=== PATIENT | female | born 1935 | race Caucasian/White ===

== ENCOUNTER → 2018-11-09 | Outpatient (CLI) | payer MEDICARE ==
[~2018-11-09] MED LIST: ALEN5TAB2 PO; ASPI-496 PO; CALC1TAB PO; CHOL2000 PO; MULT-717 PO; SIMV20TA3; SIMV20TA3 PO; VITA200C7 PO
== END | disposition home or self-care (01) ==
LOC: CVU 08:06
PROVIDERS: ATTEND Nurse Practitioner Family
DX: I83.892 Varicose veins of left lower extremity with other complications (principal); R60.9 Edema, unspecified; M79.604 Pain in right leg
CPT/HCPCS: 93970

== ENCOUNTER → 2018-11-15 | Outpatient (CLI) | payer MEDICARE | END | disposition home or self-care (01) | LOC: CFH 08:56 | PROVIDERS: ATTEND Nurse Practitioner Family | DX: M85.88 Other specified disorders of bone density and structure, other site (principal); Z78.0 Asymptomatic menopausal state | CPT/HCPCS: 77080 ==

== ENCOUNTER 2019-08-28 15:05 | Emergency (ER) | payer MEDICARE ==
[~2019-08-28] VITALS: Ht 154.9 cm; Wt 85.0 kg
[~2019-08-28 15:05] MED LIST changes: -ALEN5TAB2 PO; +ALEN5TAB5 PO
--- NOTE | 2019-08-28 15:27 | NUR ---
PT MOVED TO ROOM
--- NOTE | 2019-08-28 15:48 | NUR ---
BREAK NOTE: PT. IS A & O X 4 WITH A GCS OF 15. PT. REPORTS BACK PAIN SINCE TUESDAY, 2 DAYS. PT. DENIES TRAUMA OR FALLS. PT. IS PINK,WARM AND DRY. LUNGS ARE CTA. MM ARE PINK AND MOIST WITH PULSES +2 THROUGHOUT. PT. AMBULATES WITH A CANE. PT. DENIES BOWEL OR BLADDER ISSURES. PT. HAS THE PULSE OX AND BP CUFF IN PLACE. SIDERAILS REMAIN UP X 2 WITH THE CALL LIGHT IN PLACE. PT. WAS GIVEN A BLANKET FOR WARMTH.
[2019-08-28] MEDS ORDERED: SODIUM CHLORIDE FLUSH 10ML SYR IVF ONE (16:00)
[2019-08-28 16:39] LABS: BASOPHILS # (AUTO) 0.04 x10^3/uL (0-0.1); BASOPHILS % (AUTO) 1 % (0-1); EOSINOPHILS # (AUTO) 0.12 x10^3/uL (0-0.4); EOSINOPHILS % (AUTO) 2 % (1-7); LYMPHOCYTES # (AUTO) 1.57 x10^3/uL (1-3.4); LYMPHOCYTES % (AUTO) 24 % (22-44); MD NO; MEAN CORPUSCULAR HEMOGLOBIN 33.4 pg (27.0-34.8); MEAN CORPUSCULAR HGB CONC 33.1 g/dL (32.4-35.8); MEAN CORPUSCULAR VOLUME 100.8 fL (80-100); MEAN PLATELET VOLUME 7.9 fL (7.4-10.4); MONOCYTES # (AUTO) 0.39 x10^3/uL (0.2-0.8); MONOCYTES % (AUTO) 6 % (2-9); NEUTROPHILS # (AUTO) 4.34 x10^3/uL (1.8-6.8); NEUTROPHILS % (AUTO) 67 % (42-75); PLATELET COUNT 292 x10^3/uL (130-400); RED BLOOD COUNT 4.31 x10^6/uL (3.82-5.3); RED CELL DISTRIBUTION WIDTH 13.2 % (9.6-15.2)
--- NOTE | 2019-08-28 16:47 | NUR ---
REPORT FROM JOE HILLS TO ASSUME CARE AT THIS TIME.
[2019-08-28 16:49] LABS: ALANINE AMINOTRANSFERASE 20 U/L (12-78); ALBUMIN 3.6 g/dL (3.4-5.0); ANION GAP 6 mmol/L (5-15); CALCIUM 9.1 mg/dL (8.5-10.1); CHLORIDE 110 mmol/L (98-107); CREATININE 0.81 mg/dL (0.55-1.02)
[2019-08-28 16:52] LABS: ALKALINE PHOSPHATASE 47 U/L (45-117); TOTAL PROTEIN 6.9 g/dL (6.4-8.2)
--- NOTE | 2019-08-28 17:00 | NUR ---
pt resting in room with family at bs. vss. no needs expressed. pt unable to provide clean ua sample. will plan to straight cath. awaiting ct.
--- NOTE | 2019-08-28 17:13 | NUR ---
UA COLLECTED VIA STRAIGHT CATH AND SENT TO LAB. VSS. PT TOLERATED WELL. NO NEEDS EXPRESSED. CALL LIGHT WITHIN REACH.
[2019-08-28 17:38] LABS: MICROSCOPIC AUTO
[2019-08-28 17:48] LABS: CULTURE INDICATED? NO
[2019-08-28] MEDS ORDERED: OMNIPAQUE 350 MG/ML, 100ML BOTTLE ONE (17:53)
--- NOTE | 2019-08-28 18:03 | NUR ---
ALL RESULTS BACK AT THIS TIME. CHART UP FOR RECHECK.
[2019-08-28 18:37] VITALS: BP 173/72
== END 2019-08-28 19:09 | disposition home or self-care (01) ==
LOC: ED 18:45
DX: M54.42 Lumbago with sciatica, left side (principal); E78.5 Hyperlipidemia, unspecified
CPT/HCPCS: 36415; 74177; 80053; 81001; 85025; 99284; Q9967

== ENCOUNTER 2020-06-08 19:24 | Emergency (ER) | payer MEDICARE ==
[~2020-06-08] VITALS: Ht 154.9 cm; Wt 91.9 kg
[~2020-06-08 19:24] MED LIST changes: +SIMV20TA19; +SIMV20TA19 PO; -SIMV20TA3; -SIMV20TA3 PO
--- NOTE | 2020-06-08 20:00 | NUR ---
PT GETTING INTO ELEVATOR AT [facility], PT STATED THAT FLOOR WAS NOT LEVEL AND SHE ENDED UP FALLING DOWN. DENIES LOC, DENIES HITTING HEAD AND STATES LEFT HIP PAIN. PT DENIES ANY MEDICAL HISTORY OR MEDS. PT RESTING COMFORTABLY ION BED, FAMILY AT BEDSIDE, STATES NO NEEDS AT THIS TIME. 09/07 PAIN.
--- NOTE | 2020-06-08 20:23 | NUR ---
ATTEMPTED TO GET PT UP TO AMBULATE, PT HAVING TOO MUCH PAIN. ERP STATES TO GIVE ORAL PAIN MEDS AND A XRAY OF HER BACK AND ATTEMPT TO GET UP WHEN PAIN MEDS START WORKING.
[2020-06-08] MEDS ORDERED: HYDROcodone/APAP 5/325 TABLET ONE (20:25)
[2020-06-08] MEDS ORDERED: HYDROcodone/APAP 5/325 TABLET PO PRN (20:30)
[2020-06-08] MEDS ORDERED: ONDANSETRON ODT 4 MG ONE (21:22)
--- NOTE | 2020-06-08 21:25 | NUR ---
ATTEMPTED TO GET PT UP TO AMBULATE. PT ABLE TO STAND UP AND TAKE A COUPLE STEPS, BUT WAS HAVING INCREASED PAIN AND NAUSEA. ERP NOTIFIED, PT MEDICATED PER EMAR. PT RESTING IN GURNEY AT THIS TIME, ERP AT BEDSIDE, SAFETY MEASURES IN PLACE
[2020-06-08] MEDS ORDERED: ONDANSETRON ODT 4 MG PO ONE (21:30)
[2020-06-08 21:57] VITALS: BP 159/88
== END 2020-06-08 22:07 | disposition home or self-care (01) ==
LOC: ED 20:55
DX: S39.012A Strain of muscle, fascia and tendon of lower back, initial encounter (principal); S70.02XA Contusion of left hip, initial encounter; W01.0XXA Fall on same level from slipping, tripping and stumbling without subsequent striking against object, initial encounter; Y93.89 Activity, other specified; Y92.410 Unspecified street and highway as the place of occurrence of the external cause; Y99.8 Other external cause status
CPT/HCPCS: 72110; 72170; 99284; Q0162

== ENCOUNTER 2020-08-25 00:25 | Emergency (ER) | payer MEDICARE ==
[~2020-08-25] VITALS: Ht 154.9 cm; Wt 89.0 kg
--- NOTE | 2020-08-25 01:01 | NUR ---
PT HAS C/O "INCREASED BREATHING AND SOB WITH MOVEMENT" DAUGHTER SAID PT HAS BEEN SLEEPING IN A CHAIR THAT HAS SEEMED TO HELP PT SINCE.
--- NOTE | 2020-08-25 01:07 | NUR ---
PT PLACED ON ALL MONITORS
[2020-08-25 01:27] LABS: BASOPHILS % (AUTO) 1 % (0-1); EOSINOPHILS % (AUTO) 3 % (1-7); LYMPHOCYTES % (AUTO) 32 % (22-44); MEAN CORPUSCULAR HEMOGLOBIN 33.6 pg (27.0-34.8); MEAN CORPUSCULAR HGB CONC 33.6 g/dL (32.4-35.8); MEAN PLATELET VOLUME 8.6 fL (7.4-10.4); MONOCYTES % (AUTO) 8 % (2-9); NEUTROPHILS % (AUTO) 58 % (42-75); PLATELET COUNT 231 x10^3/uL (130-400); RED BLOOD COUNT 4.59 x10^6/uL (3.82-5.3); RED CELL DISTRIBUTION WIDTH 13.6 % (9.6-15.2)
[2020-08-25 01:36] LABS: ALANINE AMINOTRANSFERASE 20 U/L (12-78); ALBUMIN 3.4 g/dL (3.4-5.0); ANION GAP 7 mmol/L (5-15); CALCIUM 9.1 mg/dL (8.5-10.1); CHLORIDE 111 mmol/L (98-107); CREATININE 0.74 mg/dL (0.55-1.02)
[2020-08-25 01:40] LABS: ALKALINE PHOSPHATASE 62 U/L (45-117); BILIRUBIN,TOTAL 0.9 mg/dL (0.2-1.0); TOTAL PROTEIN 6.7 g/dL (6.4-8.2); TROPONIN I < 0.015 ng/mL (0.000-0.045)
--- NOTE | 2020-08-25 02:00 | NUR ---
PT WAITING WITH FAMILY AT BEDSIDE FOR RESULTS NO NEW COMPLAINTS
[2020-08-25 02:08] LABS: MD SCAN
[2020-08-25 04:08] VITALS: BP 184/97
== END 2020-08-25 04:11 | disposition home or self-care (01) ==
LOC: ED 03:58
DX: R06.00 Dyspnea, unspecified (principal); R05 Cough; I45.10 Unspecified right bundle-branch block; E78.5 Hyperlipidemia, unspecified; R07.9 Chest pain, unspecified
CPT/HCPCS: 36415; 71045; 80053; 83880; 84484; 85025; 93005; 99285

== ENCOUNTER → 2020-10-06 | Outpatient (CLI) | payer MEDICARE ==
[~2020-10-06] MED LIST changes: +SULF1TAB24 PO
== END | disposition home or self-care (01) ==
LOC: WOUND 08:59
PROVIDERS: ATTEND Internal Medicine Infectious Disease
DX: S81.801A Unspecified open wound, right lower leg, initial encounter (principal); S51.801A Unspecified open wound of right forearm, initial encounter; S81.832A Puncture wound without foreign body, left lower leg, initial encounter; S51.832A Puncture wound without foreign body of left forearm, initial encounter; E78.5 Hyperlipidemia, unspecified; F03.90 Unspecified dementia, unspecified severity, without behavioral disturbance, psychotic disturbance, mood disturbance, and anxiety; Z79.82 Long term (current) use of aspirin; Z85.828 Personal history of other malignant neoplasm of skin; Z87.891 Personal history of nicotine dependence; Z90.710 Acquired absence of both cervix and uterus; Z79.899 Other long term (current) drug therapy; W19.XXXA Unspecified fall, initial encounter; Y93.89 Activity, other specified; Y92.89 Other specified places as the place of occurrence of the external cause; Y99.8 Other external cause status
CPT/HCPCS: 11042; 97597; G0463

== ENCOUNTER 2020-10-10 09:19 | Outpatient (CLI) | payer MEDICARE | END 2020-10-10 23:59 | disposition home or self-care (01) | LOC: WOUND 09:19 | PROVIDERS: ATTEND Internal Medicine | DX: S81.832D Puncture wound without foreign body, left lower leg, subsequent encounter (principal); S51.832D Puncture wound without foreign body of left forearm, subsequent encounter; E78.5 Hyperlipidemia, unspecified; Z85.828 Personal history of other malignant neoplasm of skin; Z87.891 Personal history of nicotine dependence; Z87.01 Personal history of pneumonia (recurrent); Z79.82 Long term (current) use of aspirin; Z90.49 Acquired absence of other specified parts of digestive tract; Z90.710 Acquired absence of both cervix and uterus; W19.XXXD Unspecified fall, subsequent encounter | CPT/HCPCS: G0463 ==

== ENCOUNTER → 2020-10-13 | Outpatient (CLI) | payer MEDICARE | END | disposition home or self-care (01) | LOC: WOUND 14:17 | PROVIDERS: ATTEND Internal Medicine | DX: S81.801D Unspecified open wound, right lower leg, subsequent encounter (principal); S51.801D Unspecified open wound of right forearm, subsequent encounter; S81.832D Puncture wound without foreign body, left lower leg, subsequent encounter; S51.832D Puncture wound without foreign body of left forearm, subsequent encounter; F03.90 Unspecified dementia, unspecified severity, without behavioral disturbance, psychotic disturbance, mood disturbance, and anxiety; E78.5 Hyperlipidemia, unspecified; Z85.828 Personal history of other malignant neoplasm of skin; Z87.891 Personal history of nicotine dependence; Z87.01 Personal history of pneumonia (recurrent); Z79.82 Long term (current) use of aspirin; Z90.49 Acquired absence of other specified parts of digestive tract; Z90.710 Acquired absence of both cervix and uterus; Z79.899 Other long term (current) drug therapy; W20.8XXD Other cause of strike by thrown, projected or falling object, subsequent encounter | CPT/HCPCS: 97597 ==

== ENCOUNTER 2020-10-20 13:31 | Outpatient (CLI) | payer MEDICARE | END 2020-10-20 23:59 | disposition home or self-care (01) | LOC: WOUND 13:31 | PROVIDERS: ATTEND Internal Medicine | DX: S81.801D Unspecified open wound, right lower leg, subsequent encounter (principal); S81.832D Puncture wound without foreign body, left lower leg, subsequent encounter; S51.832D Puncture wound without foreign body of left forearm, subsequent encounter; F03.90 Unspecified dementia, unspecified severity, without behavioral disturbance, psychotic disturbance, mood disturbance, and anxiety; E78.5 Hyperlipidemia, unspecified; Z85.828 Personal history of other malignant neoplasm of skin; Z87.891 Personal history of nicotine dependence; Z87.01 Personal history of pneumonia (recurrent); Z79.82 Long term (current) use of aspirin; Z90.49 Acquired absence of other specified parts of digestive tract; Z90.710 Acquired absence of both cervix and uterus; Z79.899 Other long term (current) drug therapy; W20.8XXD Other cause of strike by thrown, projected or falling object, subsequent encounter | CPT/HCPCS: 97597 ==

== ENCOUNTER → 2020-10-29 | Outpatient (CLI) | payer MEDICARE | END | disposition home or self-care (01) | LOC: WOUND 10:42 | PROVIDERS: ATTEND Internal Medicine | DX: S81.801D Unspecified open wound, right lower leg, subsequent encounter (principal); S81.832D Puncture wound without foreign body, left lower leg, subsequent encounter; S51.832D Puncture wound without foreign body of left forearm, subsequent encounter; F03.90 Unspecified dementia, unspecified severity, without behavioral disturbance, psychotic disturbance, mood disturbance, and anxiety; E78.5 Hyperlipidemia, unspecified; Z85.828 Personal history of other malignant neoplasm of skin; Z87.891 Personal history of nicotine dependence; Z87.01 Personal history of pneumonia (recurrent); Z79.82 Long term (current) use of aspirin; Z90.49 Acquired absence of other specified parts of digestive tract; Z90.710 Acquired absence of both cervix and uterus; Z79.899 Other long term (current) drug therapy; W20.8XXD Other cause of strike by thrown, projected or falling object, subsequent encounter | CPT/HCPCS: 97597 ==

== ENCOUNTER 2020-11-12 10:21 | Outpatient (CLI) | payer MEDICARE | END 2020-11-12 23:59 | disposition home or self-care (01) | LOC: WOUND 10:21 | PROVIDERS: ATTEND Internal Medicine | DX: S81.801D Unspecified open wound, right lower leg, subsequent encounter (principal); S81.832D Puncture wound without foreign body, left lower leg, subsequent encounter; S51.832D Puncture wound without foreign body of left forearm, subsequent encounter; F03.90 Unspecified dementia, unspecified severity, without behavioral disturbance, psychotic disturbance, mood disturbance, and anxiety; E78.5 Hyperlipidemia, unspecified; Z85.828 Personal history of other malignant neoplasm of skin; Z87.891 Personal history of nicotine dependence; Z87.01 Personal history of pneumonia (recurrent); Z79.82 Long term (current) use of aspirin; Z90.49 Acquired absence of other specified parts of digestive tract; Z90.710 Acquired absence of both cervix and uterus; Z79.899 Other long term (current) drug therapy; W20.8XXD Other cause of strike by thrown, projected or falling object, subsequent encounter | CPT/HCPCS: 97597 ==

== ENCOUNTER 2020-11-25 14:18 | Outpatient (CLI) | payer MEDICARE | END 2020-11-25 23:59 | disposition home or self-care (01) | LOC: WOUND 14:18 | PROVIDERS: ATTEND Internal Medicine | DX: S81.831D Puncture wound without foreign body, right lower leg, subsequent encounter (principal); F03.90 Unspecified dementia, unspecified severity, without behavioral disturbance, psychotic disturbance, mood disturbance, and anxiety; E78.5 Hyperlipidemia, unspecified; Z85.828 Personal history of other malignant neoplasm of skin; Z87.891 Personal history of nicotine dependence; Z87.01 Personal history of pneumonia (recurrent); Z79.82 Long term (current) use of aspirin; Z90.49 Acquired absence of other specified parts of digestive tract; Z90.710 Acquired absence of both cervix and uterus; Z79.899 Other long term (current) drug therapy; W20.8XXD Other cause of strike by thrown, projected or falling object, subsequent encounter | CPT/HCPCS: 97597 ==

== ENCOUNTER → 2020-12-02 | Outpatient (CLI) | payer MEDICARE | END | disposition home or self-care (01) | LOC: WOUND 14:48 | PROVIDERS: ATTEND Nurse Practitioner Family | DX: S81.831D Puncture wound without foreign body, right lower leg, subsequent encounter (principal); F03.90 Unspecified dementia, unspecified severity, without behavioral disturbance, psychotic disturbance, mood disturbance, and anxiety; E78.5 Hyperlipidemia, unspecified; Z85.828 Personal history of other malignant neoplasm of skin; Z87.891 Personal history of nicotine dependence; Z87.01 Personal history of pneumonia (recurrent); Z79.82 Long term (current) use of aspirin; Z90.49 Acquired absence of other specified parts of digestive tract; Z90.710 Acquired absence of both cervix and uterus; Z79.899 Other long term (current) drug therapy; W20.8XXD Other cause of strike by thrown, projected or falling object, subsequent encounter | CPT/HCPCS: C5271; Q4166 ==

== ENCOUNTER 2020-12-09 12:31 | Outpatient (CLI) | payer MEDICARE | END 2020-12-09 23:59 | disposition home or self-care (01) | LOC: WOUND 12:31 | PROVIDERS: ATTEND Nurse Practitioner Family | DX: S81.831D Puncture wound without foreign body, right lower leg, subsequent encounter (principal); S05.00XD Injury of conjunctiva and corneal abrasion without foreign body, unspecified eye, subsequent encounter; S80.11XD Contusion of right lower leg, subsequent encounter; L97.812 Non-pressure chronic ulcer of other part of right lower leg with fat layer exposed; F03.90 Unspecified dementia, unspecified severity, without behavioral disturbance, psychotic disturbance, mood disturbance, and anxiety; E78.5 Hyperlipidemia, unspecified; Z85.828 Personal history of other malignant neoplasm of skin; Z87.891 Personal history of nicotine dependence; Z87.01 Personal history of pneumonia (recurrent); Z79.82 Long term (current) use of aspirin; Z90.49 Acquired absence of other specified parts of digestive tract; Z90.710 Acquired absence of both cervix and uterus; Z79.899 Other long term (current) drug therapy; W20.8XXD Other cause of strike by thrown, projected or falling object, subsequent encounter | CPT/HCPCS: 97597; Q4118; 15271 ==

== ENCOUNTER 2020-12-16 13:09 | Outpatient (CLI) | payer MEDICARE ==
[~2020-12-16 13:09] MED LIST changes: +SULF-23 PO; -SULF1TAB24 PO
== END 2020-12-16 23:59 | disposition home or self-care (01) ==
LOC: WOUND 13:09
PROVIDERS: ATTEND Nurse Practitioner Family
DX: S81.831D Puncture wound without foreign body, right lower leg, subsequent encounter (principal); S80.11XD Contusion of right lower leg, subsequent encounter; L97.812 Non-pressure chronic ulcer of other part of right lower leg with fat layer exposed; F03.90 Unspecified dementia, unspecified severity, without behavioral disturbance, psychotic disturbance, mood disturbance, and anxiety; E78.5 Hyperlipidemia, unspecified; Z85.828 Personal history of other malignant neoplasm of skin; Z87.891 Personal history of nicotine dependence; Z87.01 Personal history of pneumonia (recurrent); Z79.82 Long term (current) use of aspirin; Z90.49 Acquired absence of other specified parts of digestive tract; Z90.710 Acquired absence of both cervix and uterus; Z79.899 Other long term (current) drug therapy; W20.8XXD Other cause of strike by thrown, projected or falling object, subsequent encounter
CPT/HCPCS: 15271; Q4196

== ENCOUNTER → 2020-12-26 | Outpatient (CLI) | payer MEDICARE | END | disposition home or self-care (01) | LOC: WOUND 08:55 | PROVIDERS: ATTEND Internal Medicine | DX: L97.812 Non-pressure chronic ulcer of other part of right lower leg with fat layer exposed (principal); S81.831D Puncture wound without foreign body, right lower leg, subsequent encounter; S80.11XD Contusion of right lower leg, subsequent encounter; I87.8 Other specified disorders of veins; F03.90 Unspecified dementia, unspecified severity, without behavioral disturbance, psychotic disturbance, mood disturbance, and anxiety; E78.5 Hyperlipidemia, unspecified; Z85.828 Personal history of other malignant neoplasm of skin; Z87.891 Personal history of nicotine dependence; Z87.01 Personal history of pneumonia (recurrent); Z79.82 Long term (current) use of aspirin; Z90.49 Acquired absence of other specified parts of digestive tract; Z90.710 Acquired absence of both cervix and uterus; Z79.899 Other long term (current) drug therapy; W20.8XXD Other cause of strike by thrown, projected or falling object, subsequent encounter | CPT/HCPCS: 97597 ==

== ENCOUNTER → 2021-01-09 | Outpatient (CLI) | payer MEDICARE | END | disposition home or self-care (01) | LOC: WOUND 08:47 | PROVIDERS: ATTEND Internal Medicine | DX: L97.812 Non-pressure chronic ulcer of other part of right lower leg with fat layer exposed (principal); S81.831D Puncture wound without foreign body, right lower leg, subsequent encounter; S80.11XD Contusion of right lower leg, subsequent encounter; I87.8 Other specified disorders of veins; F03.90 Unspecified dementia, unspecified severity, without behavioral disturbance, psychotic disturbance, mood disturbance, and anxiety; E78.5 Hyperlipidemia, unspecified; Z85.828 Personal history of other malignant neoplasm of skin; Z87.891 Personal history of nicotine dependence; Z87.01 Personal history of pneumonia (recurrent); Z79.82 Long term (current) use of aspirin; Z90.49 Acquired absence of other specified parts of digestive tract; Z90.710 Acquired absence of both cervix and uterus; Z79.899 Other long term (current) drug therapy; W20.8XXD Other cause of strike by thrown, projected or falling object, subsequent encounter | CPT/HCPCS: 97597 ==

== ENCOUNTER → 2021-01-23 | Outpatient (CLI) | payer MEDICARE | END | disposition home or self-care (01) | LOC: WOUND 08:51 | PROVIDERS: ATTEND Internal Medicine | DX: L97.812 Non-pressure chronic ulcer of other part of right lower leg with fat layer exposed (principal); S81.831D Puncture wound without foreign body, right lower leg, subsequent encounter; S80.11XD Contusion of right lower leg, subsequent encounter; I87.8 Other specified disorders of veins; F03.90 Unspecified dementia, unspecified severity, without behavioral disturbance, psychotic disturbance, mood disturbance, and anxiety; E78.5 Hyperlipidemia, unspecified; Z85.828 Personal history of other malignant neoplasm of skin; Z87.891 Personal history of nicotine dependence; Z87.01 Personal history of pneumonia (recurrent); Z79.82 Long term (current) use of aspirin; Z90.49 Acquired absence of other specified parts of digestive tract; Z90.710 Acquired absence of both cervix and uterus; Z79.899 Other long term (current) drug therapy; W20.8XXD Other cause of strike by thrown, projected or falling object, subsequent encounter | CPT/HCPCS: 97597 ==

== ENCOUNTER → 2021-02-13 | Outpatient (CLI) | payer MEDICARE | END | disposition home or self-care (01) | LOC: WOUND 09:12 | PROVIDERS: ATTEND Internal Medicine | DX: S81.831D Puncture wound without foreign body, right lower leg, subsequent encounter (principal); S80.11XD Contusion of right lower leg, subsequent encounter; E78.5 Hyperlipidemia, unspecified; F03.90 Unspecified dementia, unspecified severity, without behavioral disturbance, psychotic disturbance, mood disturbance, and anxiety; Z85.828 Personal history of other malignant neoplasm of skin; Z87.891 Personal history of nicotine dependence; Z87.01 Personal history of pneumonia (recurrent); Z79.899 Other long term (current) drug therapy; Z79.82 Long term (current) use of aspirin; Z90.710 Acquired absence of both cervix and uterus; Z90.49 Acquired absence of other specified parts of digestive tract; W18.00XD Striking against unspecified object with subsequent fall, subsequent encounter | CPT/HCPCS: G0463 ==